=== PATIENT | female | born 1940 | race Caucasian/White ===

== ENCOUNTER 2019-07-10 14:09 | Emergency (ER) | payer MEDICARE ==
[~2019-07-10] VITALS: Ht 154.9 cm; Wt 56.7 kg
[~2019-07-10 14:09] MED LIST: ATOR40TA; Boniva3 MG/3 ML IV; CALCIUM; COUMADIN; D-3; FOLI400 PO; GLYB5; GLYB5 PO; Keflex500 MG PO; LIPIZIDE; METF500; METF500 PO; METFORMIN; METOPROLOL; OMEG1CAP30 PO; ROSI4; RXERYTOPTH OP; SIMV10 PO; WARF5 PO; WARF6; [UNRECOGNIZED DRUG - OTHER]
[2019-07-10] MEDS ORDERED: ALEN70 PO (14:25)
[2019-07-10] MEDS ORDERED: METF500 PO (14:26)
[2019-07-10] MEDS ORDERED: WARF5 PO (14:26)
[2019-07-10] MEDS ORDERED: Zocor20 MG PO (14:26)
[2019-07-10] MEDS ORDERED: METO25ER PO (14:26)
[2019-07-10] MEDS ORDERED: FOLI1 PO (14:26)
[2019-07-10] MEDS ORDERED: VITAMIN D31000 UNI2 PO (14:27)
[2019-07-10] MEDS ORDERED: ASCO500 PO (14:27)
[2019-07-10] MEDS ORDERED: OMEGA 3 500 SO1 EACH PO (14:28)
== END 2019-07-10 15:53 | disposition home or self-care (01) ==
LOC: ER 14:09
DX: M79.652 Pain in left thigh (principal); E11.9 Type 2 diabetes mellitus without complications; Z86.73 Personal history of transient ischemic attack (TIA), and cerebral infarction without residual deficits; Z91.040 Latex allergy status; Z79.899 Other long term (current) drug therapy; Z79.01 Long term (current) use of anticoagulants; Z79.84 Long term (current) use of oral hypoglycemic drugs
CPT/HCPCS: 93971; 99283-25

== ENCOUNTER → 2022-06-23 | Outpatient (CLI) | payer MEDICARE ==
[~2022-06-23] MED LIST changes: +ALEN70 PO; +ASCO500 PO; +FOLI1 PO; +METO25ER PO; +OMEGA 3 500 SO1 EACH PO; +VITAMIN D31000 UNI2 PO; +Zocor20 MG PO
[2022-06-23 10:13] LABS: Source, Urine Clean Catch
[2022-06-23 11:32] LABS: Appearance, Urine Clear (Clear); Bilirubin, Urine Neg (Neg); Blood, Urine 2+ (Neg); Color, Urine Yellow (P-Yellow); Glucose Qualitative, Urine Neg (Neg); Ketones, Urine Neg (Neg); Leukocyte Esterase, Urine 2+ (Neg); Nitrite, Urine Neg (Neg); Protein, Urine Neg (Neg); Urobilinogen, Urine NORM (Normal)
[2022-06-23 12:23] LABS: Red Blood Cells, Urine 0-2 /hpf (0-2); Squamous Epithelial Cells Few /hpf (Few); White Blood Cells, Urine 25-50 /hpf (0-5)
[2022-06-23 12:24] LABS: Bacteria Many /hpf
== END | disposition home or self-care (01) ==
LOC: LAB SHORT 10:09 → LAB 10:09 → EDSTATUS 12:05
PROVIDERS: Physician Assistant
DX: N39.0 Urinary tract infection, site not specified (principal)
CPT/HCPCS: 81001; 87077; 87086; 87186

== ENCOUNTER 2024-12-21 21:32 | Emergency (ER) | payer OTHER, MEDICARE ==
[~2024-12-21] VITALS: Ht 149.9 cm; Wt 54.4 kg
[~2024-12-21 21:32] MED LIST changes: -FOLI1 PO
[2024-12-21] MEDS ORDERED: Acetaminophen/Codeine 300-30 mg PO ONE (21:50)
[2024-12-21] MEDS ORDERED: ZESTRIL40 M1 PO (21:50)
[2024-12-21] MEDS ORDERED: METFORMIN HCL500 M3 PO (21:51)
[2024-12-21] MEDS ORDERED: XARELTO PO (21:51)
[2024-12-21] MEDS ORDERED: METOPROLOL SUCC25 MG PO (21:51)
[2024-12-21] MEDS ORDERED: ATOR40TA PO (21:52)
[2024-12-21 22:00] VITALS: BP 127/51
[2024-12-21] MEDS ORDERED: FOLI1 PO (22:00)
[2024-12-21] MEDS ORDERED: HYDHCL25 PO (22:02)
== END 2024-12-21 22:52 | disposition other institution (70) ==
LOC: ER 21:32
DX: S96.912A Strain of unspecified muscle and tendon at ankle and foot level, left foot, initial encounter (principal); S93.402A Sprain of unspecified ligament of left ankle, initial encounter; W01.0XXA Fall on same level from slipping, tripping and stumbling without subsequent striking against object, initial encounter; E11.9 Type 2 diabetes mellitus without complications; Z91.040 Latex allergy status; Z79.01 Long term (current) use of anticoagulants; Z79.84 Long term (current) use of oral hypoglycemic drugs; Z79.899 Other long term (current) drug therapy
CPT/HCPCS: 73610; 73630; 99283-25; A9270